=== PATIENT | female | born 1940 | race Caucasian/White ===

== ENCOUNTER 2016-10-11 15:23 | Emergency (ER) | payer OTHER ==
[2016-10-11] MEDS ORDERED: NORCO-5 PO ONE (16:38)
[2016-10-11] MEDS ORDERED: TORADOL IM ONE (16:38)
[2016-10-11] MEDS ORDERED: ZOFRAN ODT PO ONE (16:38)
--- NOTE | 2016-10-11 16:43 | Diag Imaging Result Document ---
PROCEDURE NAME: TRAUMA SHOULDER LEFT - 10/11/2016 LEFT SHOULDER 3 VIEWS: FINDINGS: There is a comminuted fracture of the surgical neck of the humerus. No evidence of dislocation. IMPRESSION: Fracture proximal humerus.
--- NOTE | 2016-10-11 17:01 | PROVIDER DOCUMENTATION ---
HPI-Musculoskeletal Pain/Inj - GENERAL Chief Complaint: Fall Stated Complaint: FALL Time Seen by Provider: 10/11/16 16:23 Source: patient - HX OF PRESENT ILLNESS-MUSKULOSKELTAL Nature of Presenting Problem: This pt presents today c complaints of left sided shoulder pain after a fall earlier today. She reports that she slipped and landed hard on her R shoulder. No head injury, LOC or neck pain. No loss of motor function or sensation. No other injuries or complaints. Pt does not take blood thinners. Quality of Pain: reports: aching Severity in ED: moderate Onset/Duration: 1-3 hours ago Timing: still present Modifying Factors: improves with: movement, palpation Any recent injury?: Yes Locality of Occurance: Home Similar Symptoms Previously?: No Recently seen or treated by another doctor?: No Review of Systems - Adult - REVIEW OF SYSTEMS - ADULT Constitutional: reports: no symptoms reported. denies: chills, fever Eyes: reports: no symptoms reported. denies: discharge, dry eyes Ears, Nose, Mouth & Throat: reports: no symptoms reported. denies: ear discharge, ear pain Cardiovascular: reports: no symptoms reported. denies: chest pain, edema Respiratory: reports: no symptoms reported. denies: chronic cough, cough Gastrointestinal: reports: no symptoms reported. denies: abdominal pain, hematemesis Genitourinary: reports: no symptoms reported. denies: dysuria, discharge Musculoskeletal: reports: bone pain, muscle aches. denies: frequent leg cramps , muscle weakness Integumentary: reports: no symptoms reported. denies: hives, hair loss Neurological: reports: no symptoms reported. denies: ataxia, dizziness/vertigo Psychiatric: reports: no symptoms reported. denies: anxiety, anti-depressant use Endocrine: reports: no symptoms reported Hematologic/Lymphatic: reports: no symptoms reported Allergic/Immunologic: reports: no symptoms reported All Other Systems: Reviewed and Negative Past History - Adult - PAST MEDICAL HISTORY-ADULT Review of Records: reports: Old Records Reviewed, Nursing Assessment Review, Medications Reviewed, Social history reviewed & non-contributory. Major Childhood Illnesses: reports: denies history Cardiovascular: reports: denies history Respiratory: reports: denies history Gastrointestinal: reports: denies history Obstetrical/Gynecological: reports: denies history Genitourinary: reports: denies history Musculoskeletal: reports: denies history Neurological: reports: denies history Endocrine/Immune: reports: denies history Other Conditions: reports: denies history Physical Exam-Injury Related - Physical Exam-Injury Related Initial Vital Signs Reviewed: Yes General Appearance: appears well, alert, no apparent distress Eyes: PERRL/EOMI, pink conjunctivae Head, Ears, Nose, Mouth & Throat: normocephalic/atraumatic, moist mucous membranes, normal ENT inspection Neck: non-tender, full range of motion, supple, normal inspection Respiratory: chest non-tender, lungs clear, normal breath sounds, no pleuratic chest pain, no respiratory distress, no accessory muscle use. negative: respiratory distress, decreased breath sounds, accessory muscle use Cardiovascular: normal peripheral pulses, regular rate, rhythm Peripheral Pulses: radial (R): 2+, radial (L): 2+ Abdominal Exam: normal bowel sounds, non tender, soft, no organomegaly, no pulsatile mass Back Exam: normal inspection, no CVA tenderness, no vertebral tenderness Extremity: normal gait, normal capillary refill, swelling, tenderness. 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 negative: facial droop, focal weakness, motor weakness, sensory deficit Psych/Mental Status: normal mood/affect, normal thought content, normal thought process, oriented x 3 - Glascow Coma Score Best Eye Response (Strang): (4) open spontaneously Best Verbal Response (Earl): (5) oriented Best Motor Response (Earl): (6) obeys commands Earl Total: 15 Progress - PLAN OF CARE/RESULTS Progress/Plan/Lab Results: Orders Category Date Time Status Shoulder Immobilizer DIRECTED Care 10/11/16 16:38 Active TRAUMA SHOULDER LEFT [RAD] Stat Exams 10/11/16 16:03 Draft Hydrocodone/APAP 5 mg/325 mg [[place]-5] Med 10/11/16 16:38 Discontinued 1 each PO NOW ONE Ketorolac [Toradol] Med 10/11/16 16:38 Discontinued 15 mg IM NOW ONE Ondansetron Odt [Zofran Odt] Med 10/11/16 16:38 Discontinued 4 mg PO NOW ONE Vital Signs Temp Pulse Resp BP Pulse Ox 10/11/16 15:38 97.2 F L 81 18 154/71 97 morphine Allergy (Verified 01/19/15 17:33) RASH Atorvastatin Calcium [Lipitor] 20 mg PO DAILY 01/19/15 Dorzolamide HCl/Timolol Maleat [Dorzolamide-Timolol Eye Drops] 10 ml OP BID Hydrocodone/Acetaminophen [[place] 5-325 Tablet] 1 each PO Q4-6H PRN PRN #20 tablet 01/19/15 Imipramine [Tofranil] 25 mg PO QHS 01/19/15 Lisinopril/Hydrochlorothiazide [Zestoretic 20-12.5 Tablet] 1 each PO DAILY 01/19 Nitrofurantoin Monohyd/M-Cryst [Macrobid 100 mg Capsule] 100 mg PO BID #14 capsule 01/19/15 Paroxetine HCl [Paxil] 10 mg PO BID 01/19/15 Zolpidem [Ambien] 2.5 mg PO QHS 01/19/15 Pt is feeling well. Will have her f/u c an orthopedist. She is in agreement. - XRAY 1 XRAY: Left XRAY Study: Shoulder XRAY Interpretation: proximal shoulder fx - CT/MRI 1 CT Study: Cervical Spine, Head CT Results: nad Departure - Departure Time of Disposition Order: 17:01 DIAGNOSIS: Proximal humerus fracture Qualifiers: Encounter type: initial encounter Fracture type: closed Fracture morphology: other fracture Fracture alignment: nondisplaced Laterality: left Qualified Code( s): S42.295A - Other nondisplaced fracture of upper end of left humerus, initial encounter for closed fracture Disposition: HOME 01 Certified Medical Emergency: Emergent Condition: Good Additional Instructions: Take medication as prescribed. Follow up with an orthopedist. Return to the ER for any new or worsening symptoms. ED Follow Up Instructions: You have been treated by a care provider in the Emergency Department. These instructions are being provided to you so you can have an understanding of how to care for yourself upon discharge. Upon discharge from the Emergency Department, you are responsible for making arrangements for follow-up care by a physician of your choice. Take all prescribed medications as directed. Return to the Emergency Department immediately for any new or worsening symptoms. You may call the Physician Referral phone number at [phone] to obtain a list of Physicians who are taking new patients. Prescriptions: Hydrocodone/APAP 7.5 mg/325 mg [[place]-7.5] 1 each PO Q6H PRN PRN #12 tablet PRN Reason: Pain Ondansetron Odt [Zofran 4 mg Odt] 4 mg PO Q6H PRN PRN #20 tablet PRN Reason: Nausea Referrals: Wesley Wen MD [Primary Care Provider] - Maeve Buck MD [STAFF PHYSICIAN] - Attestation - Physician/ PRECIOUS Attestation Patient care was provided by Advanced Practice Provider:: Yes Advanced Practice Provider:: Randal Santana Advanced Practice Provider documentation review:: The Mid-level provider documentation, treatment plan and medical decision making was reviewed by the physician who agrees with all treatment and medical decision making by the MLP.
--- NOTE | 2016-10-11 17:47 | Diag Imaging Result Document ---
PROCEDURE NAME: HEAD/C-SPINE W/O CONTRAST - 10/11/[address]: COMPARISON: FINDINGS: The ventricles and sulci are normal in size and contour. There is no mass, hemorrhage, or evidence of acute ischemia. The bony calvaria is intact. The visualized paranasal sinuses and mastoid air cells are clear. IMPRESSION: Negative head CT. CT CERVICAL SPINE: COMPARISON: None. FINDINGS: Alignment is anatomic. Vertebral body heights are preserved. There is some mild degeneration at C5-6 and C6-7. No fracture or subluxation. No central canal or neural foraminal stenosis. There are mild disk bulges at C5-6 and C6-7. IMPRESSION: Early cervical spondylosis. No acute disease.
[2016-10-11 18:56] VITALS: BP 144/86
== END 2016-10-11 19:00 | disposition home or self-care (01) ==
LOC: ED 15:23
DX: S42.295A Other nondisplaced fracture of upper end of left humerus, initial encounter for closed fracture (principal); M25.512 Pain in left shoulder; W01.0XXA Fall on same level from slipping, tripping and stumbling without subsequent striking against object, initial encounter; M79.1 Myalgia; Z79.899 Other long term (current) drug therapy
CPT/HCPCS: 70450; 72125; J1885